=== PATIENT | male | born 1960 | race Caucasian/White ===

== ENCOUNTER 2016-08-28 22:45 | Emergency (ER) ==
[2016-08-28 23:05] LABS: MANUAL DIFF NEEDED? NO
[2016-08-28 23:08] LABS: BASO% 0.2 % (0.0-0.8); EOS# 0.28 X1000 (0.0-0.7); EOS% 1.5 % (0.0-10.0); HEMATOCRIT 39.3 % (42.0-52.0); HEMOGLOBIN 13.6 g/dL (14.0-18.0); IMM GRAN# 0.13 X1000 (0.0-0.04); IMM GRAN% 0.7 % (0.0-0.5); LYMPH# 1.44 X1000 (1.2-3.4); LYMPH% 7.7 % (20.5-51.1); MCH 29.2 PG (27-31); MCHC 34.6 g/dL (33-37); MCV 84.5 FL (81-99); MONO# 1.48 X1000 (0.11-0.59); MONO% 7.9 % (1.7-9.3); MPV 10.3 FL (7.4-10.4); PLT 373 X1000 (130-400); RBC 4.65 XMIL (4.7-6.1)
[2016-08-28 23:17] LABS: INR 0.99; PROTIME 10.5 Seconds (9.2-11.7); PTT 25.3 Seconds (22.0-36.0)
[2016-08-28 23:25] LABS: AGAP 16; ALBUMIN 3.5 g/dL (3.5-5.0); ALKALINE PHOSPHATASE 80 U/L (32-122); BUN 20 mg/dL (8-22); CALCIUM 8.4 mg/dL (8.8-10.2); CHLORIDE 94 mmol/L (98-107); CK PROFILE 80 U/L (24-204); COSMO 272; GOT 19 U/L (10-34); GPT 14 U/L (10-44); SODIUM 133 mmol/L (136-145); TCO2 23 mmol/L (25-35); TOTAL BILIRUBIN 0.37 mg/dL (0.20-1.00); TOTAL PROTEIN 7.4 g/dL (6.3-8.3)
[2016-08-28] MEDS ORDERED: KLOR-CON PO ONE (23:48)
--- NOTE | 2016-08-28 23:50 | PROVIDER DOCUMENTATION ---
HPI-Syncope/Dizziness - General Source: patient - History of Present Illness-Syncope/Dizzy Prior Episodes: reports: multiple episodes today Timing: reports: still present Position/Activity at time of episode: reports: standing Symptoms prior to episode: reports: none Context: reports: lost consciousness Loss of Consciousness: brief (seconds) Location of injury. (If syncope resulted in an injury.): reports: none Current Symptoms: reports: none/feels normal Recently Seen Here or By Another Healthcare Provider: Yes (1 year ago) <Skylar Allison - Last Filed: 08/28/16 23:44> <Elroy Sommer - Last Filed: 08/29/16 01:39> - General Chief Complaint: Syncope Stated Complaint: PASSED OUT TWICE Time Seen by Provider: 08/28/16 23:17 Allergies/Adverse Reactions: Patient Allergies Allergy/AdvReac Type Severity Reaction Status Date / Time No Known Allergies Allergy Verified 08/28/16 23:30 Home Medications: Home Medication List Medication Instructions Recorded Confirmed Last Taken Type Adalimumab [Humira] 40 mg SQ DIRECTED 05/17/14 08/28/16 08/28/16 History Losartan [Cozaar] 50 mg PO DAILY 05/17/14 08/28/16 08/28/16 History Chlorthalidone 25 mg PO DAILY 08/28/16 08/28/16 08/28/16 History - History of Present Illness-Syncope/Dizzy Nature of Presenting Problem: 56 year old M presents to the ED with a cc of x2 syncopal episodes. PT states that he passed out once in the shower and once right after that. states that she did not see the first episode but states she ran in after hearing the commotion and pt was already coming back around. She states that he got out of the shower and passed out again face first. Pt states that he had this one year ago and was seen and was told his potassium was low. (Skylar Allison) Review of Systems - Adult - REVIEW OF SYSTEMS - ADULT Constitutional: denies: chills, fever Eyes: reports: no symptoms reported Ears, Nose, Mouth & Throat: reports: no symptoms reported Cardiovascular: denies: chest pain, palpitations Respiratory: denies: cough, shortness of breath Gastrointestinal: denies: abdominal pain, nausea, vomiting Genitourinary: reports: no symptoms reported Musculoskeletal: reports: no symptoms reported Integumentary: denies: skin sores/ulcer, skin thickening Neurological: reports: syncope. denies: dizziness/vertigo, headache/migraines Psychiatric: reports: no symptoms reported Endocrine: reports: no symptoms reported Hematologic/Lymphatic: reports: no symptoms reported Allergic/Immunologic: reports: no symptoms reported All Other Systems: Reviewed and Negative <Skylar Allison - Last Filed: 08/28/16 23:44> Past History - Adult - PAST MEDICAL HISTORY-ADULT Review of Records: reports: Nursing Assessment Review, Medications Reviewed Major Childhood Illnesses: reports: denies history Cardiovascular: reports: HTN Respiratory: reports: sleep apnea Gastrointestinal: reports: Crohn's - PRIOR SURGERIES/PROCEDURES Surgical/Procedure History: reports: appendectomy, tonsillectomy (with uvulectomy), orthopedic (extremity) - IMMUNIZATION STATUS Childhood Immunizations: See Nurse Assessment Flu Vaccine: See Nurse Assessment - SOCIAL HISTORY Smoking: non-smoker Substance Use: none/never Alcohol Use Frequency: never <Skylar Allison - Last Filed: 08/28/16 23:44> Physical Exam-General - PHYSICAL EXAM-ADULT Initial Vital Signs Reviewed: Yes - CONSTITUTIONAL General Appearance: appears well, alert, no apparent distress - RESPIRATORY Respiratory: chest non-tender, lungs clear, normal breath sounds - CARDIOVASCULAR Cardiovascular: normal peripheral pulses, regular rate, rhythm, no edema - GASTROINTESTINAL (ABDOMEN) Abdominal Exam: normal bowel sounds, non tender, soft - MUSCULOSKELETAL Extremity: normal inspection, no pedal edema - SKIN Integumentary: normal color, normal turgor, warm/dry - PSYCHIATRIC Psych/Mental Status: normal mood/affect, normal thought content, normal thought process, oriented x 3 <Skylar Allison - Last Filed: 08/28/16 23:44> Progress - EKG 1 Time of EKG reading by physician:: 22:54 EKG Read and Signed by:: Elroy Sommer EKG Interpretation (*Must complete 3 of following elements*): Abnormal Rate: 90 Rhythm: sinus rhythm with occasional PVCs [place]: left Comments: possible inferior infarct, age undetermined <Skylar Allison - Last Filed: 08/28/16 23:44> Departure <Skylar Allison - Last Filed: 08/28/16 23:44> - Departure Time of Disposition Order: 01:38 Certified Medical Emergency: Emergent <Elroy Sommer - Last Filed: 08/29/16 01:39> - Departure DIAGNOSIS: Syncope and collapse, Crohn's disease in remission Disposition: HOME 01 Condition: Good Attestation - Scribe Verification/Attestation Scribe:: Skylar Allison Acting as Scribe for:: Elroy Sommer Scribe documention review:: This chart was documented by a scribe and accurately reflects the service the provider performed and the decisions made by the provider. <Skylar Allison - Last Filed: 08/28/16 23:44> Physician Attestation - Physician Attestation I, the provider, attest to the following statement:: Elroy Sommer Physician documentation Attestation:: This documentation recorded by the scribe accurately reflects the service I personally performed and the decisions made by me. <Skylar Allison - Last Filed: 08/28/16 23:44>
[2016-08-29] MEDS: NS 1,000 ML IV SCH (00:20)
[2016-08-29] MEDS ORDERED: NS 1,000 ML IV ONE (01:52)
[2016-08-29 02:04] VITALS: BP 135/91
--- NOTE | 2016-08-29 06:16 | Diag Imaging Result Document ---
PROCEDURE NAME: ANGIOGRAM/PULMONARY ARTERIES - 08/28/2016 CT CHEST WITH INTRAVENOUS CONTRAST: TECHNIQUE: Dose-reduction protocol. FINDINGS: There is normal opacification of the pulmonary arteries and their major branches. There is a small amount of radiopaque fluid in the distal esophagus. No enlarged mediastinal or hilar lymph nodes. No consolidation although there is a tiny hazy airspace disease in the posterior right upper lobe. Mild increased interstitial markings in the posterior lungs believed to be atelectasis. There are several small scattered parenchymal cysts. Increased interstitial markings inferiorly and posteriorly in the left upper lobe may be atelectasis or fibrosis. Limited images through the upper abdomen reveal the tiniest amount of fluid about the dome of the liver. There are fluid distended loops of bowel. IMPRESSION: 1. No pulmonary emboli. 2. Cardiomegaly. 3. Tiny right upper lobe infiltrate. 4. Likely basilar atelectasis or fibrosis. A preliminary report was given at 12:47 a.m. MTDD
--- NOTE | 2016-08-29 07:45 | EKG Report ---
Test Performed on : 08/28/2016 10:54:45 PM Test Reason : syncope Blood Pressure : / mmHG Vent. Rate : 090 BPM Atrial Rate : 090 BPM P-R Int : 170 ms QRS Dur : 094 ms QT Int : 384 ms P-R-T Axes : 037 -35 066 degrees QTc Int : 469 ms Sinus rhythm. with occasional premature ventricular complexes. Left axis deviation Possible Inferior infarct , age undetermined Abnormal ECG When compared with ECG of 17-MAY-2014 18:11, premature ventricular complexes. are now present Unconfirmed Result
--- NOTE | 2016-08-29 08:13 | Diag Imaging Result Document ---
PROCEDURE NAME: CHEST-2 VIEWS - 08/28/2016 FRONTAL AND LATERAL CHEST, TWO VIEWS: COMPARISON: 02/25/2014. FINDINGS: The lungs are well expanded. The heart is not enlarged. The vessels are not distended. No pneumonia. No pleural effusions. The right hemidiaphragm is elevated. IMPRESSION: No acute abnormality.
== END 2016-08-29 02:06 | disposition home or self-care (01) ==
LOC: ED 22:45
DX: R55 Syncope and collapse (principal); R94.31 Abnormal electrocardiogram [ECG] [EKG]; I10 Essential (primary) hypertension; Z79.899 Other long term (current) drug therapy; Z87.19 Personal history of other diseases of the digestive system
CPT/HCPCS: 71020; 71275; 80053; 82550; 82948; 84484; 85025; 85379; 85610; 85730; 93005; J7030; Q9967